=== PATIENT | male | born 1995 | race Caucasian/White ===

== ENCOUNTER 2017-04-29 16:21 | Emergency (ER) | payer OTHER ==
[2017-04-29 16:28] VITALS: RESP 18
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
[2017-04-29 17:31] VITALS: BP 130/60; PULSE 59; TEMP 98.4; O2SAT 98
== END 2017-04-29 17:31 | disposition home or self-care (01) ==
DX: S42.021A Displaced fracture of shaft of right clavicle, initial encounter for closed fracture (principal); V18.0XXA Pedal cycle driver injured in noncollision transport accident in nontraffic accident, initial encounter; Y99.8 Other external cause status; Y93.55 Activity, bike riding
CPT/HCPCS: A4565